=== PATIENT | female | born 1965 | race Two or more races ===

== ENCOUNTER → 2025-02-17 | Outpatient (CLI) | payer MEDICAID, SELFPAY ==
--- NOTE | 2025-02-17 13:00 | XR_ITS ---
Examination: Breast ultrasound, unilateral, right Date and time of exam: February 17, 2025 1302 hours INDICATIONS: Mammogram February 08, 2024 7 mm circumscribed nodule outer right breast Technique: Real-time webb scale ultrasonographic imaging performed right breast including all 4 quadrants as well as nipple retroareolar and axillary region. Findings: No cystic or solid mass IMPRESSION: BI-RADS Category 1: Negative study
== END | disposition home or self-care (01) ==
LOC: SDIM 12:44
PROVIDERS: PCP Family Medicine; Referring Provider Family Medicine; Visit Provider Family Medicine
DX: R92.8 Other abnormal and inconclusive findings on diagnostic imaging of breast (principal)
CPT/HCPCS: 76641